=== PATIENT | male | born 1945 | race Caucasian/White ===

== ENCOUNTER 2018-12-09 13:28 | Emergency (ER) | payer OTHER, BC ==
[~2018-12-09] VITALS: Ht 177.8 cm; Wt 83.9 kg
[~2018-12-09 13:28] MED LIST: ARICEPT10 M1 PO; ASPIRIN325 PO; BENICAR HCT 401 EAC1 PO; BENICAR20 MG PO; HYDROCODON-ACE1 EAC7 PO; LIPITOR10 MG PO; LIPITOR20 MG PO; NAMENDA 10 MG T10 MG PO; PROVENTIL HFA6.7 G1 INH
[2018-12-09] MEDS ORDERED: FLONASE 0.05%50 MCG NASAL ×2 (14:39→14:47)
[2018-12-09 16:01] VITALS: BP 123/76
== END 2018-12-09 13:35 | disposition home or self-care (01) ==
LOC: ER 13:28
DX: J30.9 Allergic rhinitis, unspecified (principal); H69.82 Other specified disorders of Eustachian tube, left ear; I10 Essential (primary) hypertension; G47.30 Sleep apnea, unspecified; F03.90 Unspecified dementia, unspecified severity, without behavioral disturbance, psychotic disturbance, mood disturbance, and anxiety; E78.00 Pure hypercholesterolemia, unspecified; Z85.46 Personal history of malignant neoplasm of prostate; Z87.891 Personal history of nicotine dependence

== ENCOUNTER → 2019-12-11 | Outpatient (CLI) | payer OTHER, BC ==
[~2019-12-11] MED LIST changes: +FLONASE 0.05%50 MCG NASAL
== END ==
LOC: SJCVC 10:22 → SJCVCIMAG 10:22
DX: I08.2 Rheumatic disorders of both aortic and tricuspid valves (principal); I11.9 Hypertensive heart disease without heart failure; E78.00 Pure hypercholesterolemia, unspecified; I51.9 Heart disease, unspecified; R73.03 Prediabetes; I65.23 Occlusion and stenosis of bilateral carotid arteries; F03.90 Unspecified dementia, unspecified severity, without behavioral disturbance, psychotic disturbance, mood disturbance, and anxiety

== ENCOUNTER → 2020-06-23 | Outpatient (CLI) | payer OTHER, BC | LOC: SJCVC 13:30 | PROVIDERS: ATTEND Internal Medicine Cardiovascular Disease | DX: I65.23 Occlusion and stenosis of bilateral carotid arteries (principal); I35.0 Nonrheumatic aortic (valve) stenosis; I73.9 Peripheral vascular disease, unspecified; E78.00 Pure hypercholesterolemia, unspecified; I10 Essential (primary) hypertension; J44.9 Chronic obstructive pulmonary disease, unspecified; E78.5 Hyperlipidemia, unspecified; Z82.49 Family history of ischemic heart disease and other diseases of the circulatory system; Z87.891 Personal history of nicotine dependence; Z79.899 Other long term (current) drug therapy ==

== ENCOUNTER 2020-07-24 11:28 | Emergency (ER) | payer OTHER, BC ==
[~2020-07-24] VITALS: Ht 177.8 cm; Wt 54.4 kg
[2020-07-24] MEDS ORDERED: BACTRIM DS TAB1 EACH PO (12:07)
[2020-07-24 12:12] VITALS: BP 149/70
== END 2020-07-24 12:22 | disposition home or self-care (01) ==
LOC: ER 11:28
DX: L02.212 Cutaneous abscess of back [any part, except buttock and flank] (principal); I10 Essential (primary) hypertension; E78.5 Hyperlipidemia, unspecified; Z79.899 Other long term (current) drug therapy; Z87.891 Personal history of nicotine dependence

== ENCOUNTER → 2020-08-19 | Outpatient (CLI) | payer OTHER, BC ==
[~2020-08-19] MED LIST changes: +BACTRIM DS TAB1 EACH PO
== END ==
LOC: SJCVC 12:43
PROVIDERS: ATTEND Internal Medicine Cardiovascular Disease
DX: R94.31 Abnormal electrocardiogram [ECG] [EKG] (principal); I35.0 Nonrheumatic aortic (valve) stenosis; I10 Essential (primary) hypertension; I49.3 Ventricular premature depolarization; R55 Syncope and collapse; I65.23 Occlusion and stenosis of bilateral carotid arteries; E78.00 Pure hypercholesterolemia, unspecified; I82.402 Acute embolism and thrombosis of unspecified deep veins of left lower extremity; I26.99 Other pulmonary embolism without acute cor pulmonale; J44.9 Chronic obstructive pulmonary disease, unspecified; E78.5 Hyperlipidemia, unspecified; G47.33 Obstructive sleep apnea (adult) (pediatric); F03.90 Unspecified dementia, unspecified severity, without behavioral disturbance, psychotic disturbance, mood disturbance, and anxiety; Z87.891 Personal history of nicotine dependence; Z79.899 Other long term (current) drug therapy; Z88.8 Allergy status to other drugs, medicaments and biological substances

== ENCOUNTER → 2020-08-30 | Outpatient (CLI) | payer OTHER, BC | LOC: HYPER 08-25 16:15 | PROVIDERS: ATTEND Emergency Medicine | DX: L98.492 Non-pressure chronic ulcer of skin of other sites with fat layer exposed (principal); L03.312 Cellulitis of back [any part except buttock and flank]; L02.415 Cutaneous abscess of right lower limb; I11.0 Hypertensive heart disease with heart failure; I50.9 Heart failure, unspecified; I73.9 Peripheral vascular disease, unspecified; E78.00 Pure hypercholesterolemia, unspecified; G30.9 Alzheimer's disease, unspecified; J44.9 Chronic obstructive pulmonary disease, unspecified; F02.80 Dementia in other diseases classified elsewhere, unspecified severity, without behavioral disturbance, psychotic disturbance, mood disturbance, and anxiety; F32.9 Major depressive disorder, single episode, unspecified; Z86.718 Personal history of other venous thrombosis and embolism; Z86.711 Personal history of pulmonary embolism; Z85.51 Personal history of malignant neoplasm of bladder; Z87.891 Personal history of nicotine dependence; Z85.46 Personal history of malignant neoplasm of prostate ==

== ENCOUNTER → 2020-09-07 | Outpatient (CLI) | payer OTHER, BC | LOC: HYPER 10:02 | PROVIDERS: ATTEND Emergency Medicine | DX: L98.492 Non-pressure chronic ulcer of skin of other sites with fat layer exposed (principal); L03.312 Cellulitis of back [any part except buttock and flank]; L02.212 Cutaneous abscess of back [any part, except buttock and flank]; I11.0 Hypertensive heart disease with heart failure; I50.9 Heart failure, unspecified; I73.9 Peripheral vascular disease, unspecified; E78.00 Pure hypercholesterolemia, unspecified; G30.9 Alzheimer's disease, unspecified; J44.9 Chronic obstructive pulmonary disease, unspecified; F02.80 Dementia in other diseases classified elsewhere, unspecified severity, without behavioral disturbance, psychotic disturbance, mood disturbance, and anxiety; F32.9 Major depressive disorder, single episode, unspecified; Z86.718 Personal history of other venous thrombosis and embolism; Z85.51 Personal history of malignant neoplasm of bladder; Z86.711 Personal history of pulmonary embolism; Z87.891 Personal history of nicotine dependence; Z85.46 Personal history of malignant neoplasm of prostate ==

== ENCOUNTER → 2020-09-23 | Outpatient (CLI) | payer OTHER, BC | LOC: HYPER 09:03 | PROVIDERS: ATTEND Emergency Medicine | DX: L98.492 Non-pressure chronic ulcer of skin of other sites with fat layer exposed (principal); L03.312 Cellulitis of back [any part except buttock and flank]; L02.212 Cutaneous abscess of back [any part, except buttock and flank]; I11.0 Hypertensive heart disease with heart failure; I50.9 Heart failure, unspecified; I73.9 Peripheral vascular disease, unspecified; E78.00 Pure hypercholesterolemia, unspecified; G30.9 Alzheimer's disease, unspecified; J44.9 Chronic obstructive pulmonary disease, unspecified; F02.80 Dementia in other diseases classified elsewhere, unspecified severity, without behavioral disturbance, psychotic disturbance, mood disturbance, and anxiety; F32.9 Major depressive disorder, single episode, unspecified; Z85.51 Personal history of malignant neoplasm of bladder; Z87.891 Personal history of nicotine dependence; Z86.711 Personal history of pulmonary embolism; Z86.718 Personal history of other venous thrombosis and embolism; Z85.46 Personal history of malignant neoplasm of prostate ==

== ENCOUNTER → 2020-11-25 | Outpatient (CLI) | payer OTHER, BC | LOC: SJCVCIMAG 11-18 09:13 | PROVIDERS: ATTEND Internal Medicine Cardiovascular Disease | DX: I82.432 Acute embolism and thrombosis of left popliteal vein (principal); I82.442 Acute embolism and thrombosis of left tibial vein; I49.3 Ventricular premature depolarization; M79.89 Other specified soft tissue disorders; I10 Essential (primary) hypertension; E78.00 Pure hypercholesterolemia, unspecified; I65.23 Occlusion and stenosis of bilateral carotid arteries; F03.90 Unspecified dementia, unspecified severity, without behavioral disturbance, psychotic disturbance, mood disturbance, and anxiety; I35.0 Nonrheumatic aortic (valve) stenosis; J44.9 Chronic obstructive pulmonary disease, unspecified; G47.33 Obstructive sleep apnea (adult) (pediatric); I73.9 Peripheral vascular disease, unspecified; Z98.890 Other specified postprocedural states; Z79.899 Other long term (current) drug therapy; Z87.891 Personal history of nicotine dependence; Z82.49 Family history of ischemic heart disease and other diseases of the circulatory system ==

== ENCOUNTER 2021-02-07 15:45 | Emergency (ER) | payer OTHER, BC ==
[~2021-02-07] VITALS: Ht 175.3 cm; Wt 98.0 kg
--- NOTE | ~2021-02-07 | EMS ---
[address] [address] EMS Patient Care Report Name: VANNESSA EDWARDS Room #: [facility].[place]#: [id number] Admission: Attend Phys: Discharge: Date of : 43 Report #: [id number] THIS REPORT FOR: //name// Report Transmitted: 02/07/2021 15:25 EMS Care Summary [facility] MED-ACT Incident [id number] @ 02/07/2021 15:12 Incident Location [address] [place] [address] Patient VANNESSA EDWARDS Female, 75 Years 1945 Patient Address [address] [place] [address] Patient History Congestive Heart Failure (CHF),Hyperlipidemia,Prostate Cancer, Patient Allergies No known allergies, Patient Medications Eliquis, Atorvastatin, Torsemide, Doxycycline, Chief Complaint Passed out Disposition Transported No Lights/[place] Dispatch Reason Unconscious/Fainting Transported To [facility] Narrative Arrived to scene to find male patient sitting on a commode in a living room. The patient was A&Ox4 and reported he passed out and he doesn't remember much of it. He stated he has no pain but he just feels weird. [facility] [address] [place] [address] EMS Patient Care Report Name: VANNESSA EDWARDS Room #: [facility] [place].#: [id number] Admission: Attend Phys: Discharge: Date of : 43 Report #: [id number] The patient had home health present at the home and she reported he was sitting on the commode when he passed out and was out for about 2-3 minutes. She stated he woke back up and proceeded to have a bowel movement. The patient is reported to have dementia but he was alert and oriented during transport. Vital signs; ECG; 12-lead; transport. The patient's condition was unchanged. The patient was transported to [facility] ER and delivered to [facility]. The patient signed the report. He was left in care of staff. Initial Vitals @15:35P: 82,SpO2: 92, @15:22P: 90,SpO2: 93,CA Suspected: false @15:34P: 74,R: 20,BP: 145/86,Pain: 0/10,GCS: 15,SpO2: 93,Revised Trauma: 12,CA Suspected: false @15:19P: 98,R: 20,BP: 133/86,Pain: 0/10,GCS: 15,Temp: 98.1F,Glucose: 154,SpO2: 96,Revised Trauma: 12, Assessments @15:22MENTAL:Person Oriented,Time Oriented,Place Oriented,Event Oriented,SKIN:Pale,HEENT:Head/Face: No Abnormalities,Neck/Airway: No Abnormalities,LUNG SOUNDS:General: No Abnormalities,ABDOMEN:General: No Abnormalities,PELVIS//GI:No Abnormalities,EXTREMITIES:Capillary Refill: Right Upper: < 2 Sec,Left Arm: No Abnormalities,Right Arm: No Abnormalities,Left Leg: No Abnormalities,Right Leg: No Abnormalities,PULSE:Radial: 2+ Normal,NEURO:No Abnormalities, Impression Syncope / Fainting Procedures @15:2212-Lead ECGResponse: UnchangedSucceeded@15:28Surgical Mask on PatientResponse: Unchanged Timeline 15:10,Call Received 15:10,Psap Call 15:12,Dispatched 15:13,En Route 15:15,On Scene 15:17,At Patient 15:19,BP: 133/86 M,PULSE: 98,RR: 20 R,SPO2: 96 Ox,ETCO2: ,B,PAIN: 0,GCS: [facility] [address] [place] [address] EMS Patient Care Report Name: VANNESSA EDWARDS Room #: [facility].R.#: [id number] Admission: Attend Phys: Discharge: Date of : 43 Report #: [id number] 15, 15:22,12-Lead ECG,Response: UnchangedSucceeded, 15:22,BP: / M,PULSE: 90,RR: R,SPO2: 93 Ox,ETCO2: ,BG: ,PAIN: ,GCS: , 15:28,Surgical Mask on Patient,Response: Unchanged 15:32,Depart Scene 15:34,BP: 145/86 M,PULSE: 74,RR: 20 R,SPO2: 93 Ox,ETCO2: ,BG: ,PAIN: 0,GCS: 15, 15:35,BP: / M,PULSE: 82,RR: R,SPO2: 92 Ox,ETCO2: ,BG: ,PAIN: ,GCS: , 15:43,At Destination 16:01,Call Closed Disclaimer v1.1 Copyright 2020 [employer] This EMS Care Summary contains data elements from the applicable legal record (which may be displayed differently). It is designed to provide pertinent information for the following purposes: continuity of care, clinical quality, and state data reporting. The complete legal record is available to ED staff and administrators of the receiving hospital in [employer]'s Patient Tracker. All data is provided "as is."
[2021-02-07 16:16] LABS: ABSOLUTE NEUTROPHILS 7.3 thou/uL (1.4-8.2); BASOPHILS 0.6 % (0.0-2.0); EOSINOPHILS 4.3 % (0.0-3.0); HEMOGLOBIN 14.4 gm/dL (14.0-18.0); LYMPHOCYTES 15.2 % (24.0-44.0); MCH 30.8 pg (26.0-34.0); MCHC 34.2 g/dL (28.0-37.0); MCV 90.1 fL (80.0-100.0); MONOCYTES 10.3 % (1.0-8.0); PLATELET COUNT 309 thou/uL (150-400); POLYS 69.6 % (36.0-66.0); RBC 4.66 mil/uL (4.50-6.00); RDW 12.7 % (10.5-14.5); WBC 10.5 thou/uL (4.0-11.0)
[2021-02-07 16:30] LABS: CALCIUM 8.9 mg/dL (8.5-10.1); CREATININE 1.5 mg/dL (0.7-1.3); POTASSIUM 3.6 mmol/L (3.5-5.1)
[2021-02-07 16:37] LABS: ALBUMIN 3.3 g/dL (3.4-5.0); TOTAL BILIRUBIN 0.3 mg/dL (0.2-1.0); TOTAL PROTEIN 7.4 g/dL (6.4-8.2)
--- NOTE | 2021-02-07 17:06 | EKG ---
[place] [address] [facility] [employer] [place] [address] ELECTROCARDIOGRAM REPORT Name: VANNESSA EDWARDS Room #: [facility]..#: [id number] Admission: Attend Phys: Discharge: Date of : 43 Report #: [id number] [facility] ED Test Date: 2021-02-07 Test Time: 15:58:45 Pat Name: VANNESSA EDWARDS Department: Room: Gender: Tanbark Peeler: [place] : 1945 Requested By: Shantel Velásquez Order Number: [id number] MD: Duane Foley Measurements Intervals [place] Rate: 77 P: 43 LA: 156 QRS: -48 QRSD: 116 T: 27 QT: 473 QTc: 536 Interpretive Statements Sinus rhythm LAD, consider left anterior fascicular block Early R wave progression Nonspecific ST and T wave abnormality Baseline wander in lead(s) V1,V2,V3,V6 Compared to ECG 08/14/2012 00:29:27 [place] has shifted leftward Nonspecific ST and T wave abnormality is now present Electronically Signed On 02-07-2021 17:05:53 CDT by Duane Foley [email or web address] <ELECTRONICALLY SIGNED> By: Duane Foley MD, [facility] 02/07/21 1705 1558 1558 Duane Foley MD, [facility] /EPI
[2021-02-07 17:40] LABS: APTT 25.6 Seconds (24.5-32.8); INR 0.98; PROTIME 10.7 Seconds (10.5-12.1)
[2021-02-07 17:57] LABS: URINE BILIRUBIN NEGATIVE (Negative); URINE BLOOD 2+ (Negative); URINE CLARITY CLEAR; URINE COLOR YELLOW; URINE GLUCOSE-RANDOM* NEGATIVE (Negative); URINE KETONES NEGATIVE (Negative); URINE LEUKOCYTES-REFLEX 1+ (Negative); URINE NITRITE-REFLEX NEGATIVE (Negative); URINE PROTEIN (DIPSTICK) NEGATIVE (Negative); URINE UROBILINOGEN 0.2 E.U./dl (0.2-1.0)
[2021-02-07 18:01] LABS: SQUAMOUS 4-10 Moderate /LPF (0-3)
[2021-02-07 18:02] LABS: BACTERIA-REFLEX 1-9 Few /HPF (None Seen); CRYSTALS None Seen /LPF (None Seen); URINE RBC 1-2 Rare /HPF (NONE SEEN); URINE WBC-REFLEX 6-15 Few /HPF (0-5)
[2021-02-07 19:28] VITALS: BP 151/70
--- NOTE | 2021-02-08 07:21 | EKG ---
[place] [address] [facility] [employer] [address] ELECTROCARDIOGRAM REPORT Name: VANNESSA EDWARDS Room #: [facility]#: [id number] Admission: 02/07/21 Attend Phys: Discharge: 02/07/21 Date of : 43 Report #: [id number] [facility] ED Test Date: 2021-02-07 Test Time: 16:10:42 Pat Name: VANNESSA EDWARDS Department: Room: Gender: M Clearance Coordinator: unknown : 1945 Requested By: Shantel Velásquez Order Number: [id number] MD: Oz Jang Measurements Intervals [place] Rate: 122 P: 28 [place]: 126 QRS: 15 QRSD: 86 T: 33 QT: 314 QTc: 448 Interpretive Statements Sinus tachycardia Probable left atrial enlargement Borderline low voltage, extremity leads Baseline wander in lead(s) V5 Compared to ECG 02/07/2021 15:58:45 Sinus rhythm no longer present Poor R-wave progression no longer present ST (T wave) deviation no longer present Electronically Signed On 02-08-2021 7:21:18 CDT by Oz Jang [email or web address] <ELECTRONICALLY SIGNED> By: Oz Jang MD, FAC 02/08/21 0721 1610 1610 Oz Jang MD, [facility] /EPI
== END 2021-02-07 19:29 | disposition home or self-care (01) ==
LOC: ER 15:45
PROVIDERS: Emergency Medicine
DX: R55 Syncope and collapse (principal); F03.90 Unspecified dementia, unspecified severity, without behavioral disturbance, psychotic disturbance, mood disturbance, and anxiety; I10 Essential (primary) hypertension; Z87.891 Personal history of nicotine dependence; Z79.899 Other long term (current) drug therapy; E78.00 Pure hypercholesterolemia, unspecified; Z85.46 Personal history of malignant neoplasm of prostate

== ENCOUNTER → 2021-07-01 | Outpatient (CLI) | payer OTHER, BC | LOC: SJCVCIMAG 11:45 | PROVIDERS: ATTEND Internal Medicine Cardiovascular Disease | DX: R94.31 Abnormal electrocardiogram [ECG] [EKG] (principal); I08.8 Other rheumatic multiple valve diseases; I82.432 Acute embolism and thrombosis of left popliteal vein; I82.442 Acute embolism and thrombosis of left tibial vein; I11.9 Hypertensive heart disease without heart failure; R55 Syncope and collapse; E78.00 Pure hypercholesterolemia, unspecified; I65.23 Occlusion and stenosis of bilateral carotid arteries; E78.5 Hyperlipidemia, unspecified; J44.9 Chronic obstructive pulmonary disease, unspecified; G47.33 Obstructive sleep apnea (adult) (pediatric); I73.9 Peripheral vascular disease, unspecified; F03.90 Unspecified dementia, unspecified severity, without behavioral disturbance, psychotic disturbance, mood disturbance, and anxiety; Z86.718 Personal history of other venous thrombosis and embolism; Z79.899 Other long term (current) drug therapy; Z87.891 Personal history of nicotine dependence ==

== ENCOUNTER 2021-08-08 10:59 | Inpatient (IN) | payer OTHER, BC ==
[~2021-08-08] VITALS: Ht 177.8 cm; Wt 92.7 kg
[2021-08-08 11:01] VITALS: BP 130/82
[2021-08-08 11:47] LABS: ABSOLUTE NEUTROPHILS 12.9 thou/uL (1.4-8.2); BASOPHILS 0.6 % (0.0-2.0); EOSINOPHILS 0.4 % (0.0-3.0); HEMATOCRIT 41.9 % (42.0-52.0); LYMPHOCYTES 8.9 % (24.0-44.0); MCH 30.5 pg (26.0-34.0); MCHC 33.5 g/dL (28.0-37.0); MONOCYTES 11.2 % (1.0-8.0); PLATELET COUNT 278 thou/uL (150-400); POLYS 78.9 % (36.0-66.0); RBC 4.61 mil/uL (4.50-6.00); RDW 13.3 % (10.5-14.5); WBC 16.4 thou/uL (4.0-11.0)
[2021-08-08 11:51] LABS: CREATININE 1.5 mg/dL (0.7-1.3); POTASSIUM 3.4 mmol/L (3.5-5.1)
[2021-08-08 12:02] LABS: ALBUMIN 3.2 g/dL (3.4-5.0); TOTAL PROTEIN 7.8 g/dL (6.4-8.2)
[2021-08-08 17:23] LABS: FOLIC ACID 7.7 ng/mL (8.6-58.9)
[2021-08-08 19:41] VITALS: BP 108/52
[2021-08-08 20:35] VITALS: BP 117/81
[2021-08-08 21:10] VITALS: BP 128/68
--- NOTE | 2021-08-09 04:21 | NUR ---
ADMITTED THIS PATIENT FROM THE EMERGENCY DEPT. AROUND 2104H.PATEINT IS ON ROOM AIR SATURATING WELL.ORIENTED ONLY TO SELF AND FORGETFUL AND CONFUSED.ADMISSION HISORY AND ASSESSMENT COMPLETED BUT WITH LILITED INFORMATION BECAUSE PATIENT IS CONFUSED AND PROVIDES LIMITED INFORMATION.INFORMED MEDICAL TECHNOLOGIST PRN OF THIS ADMSSION AND ASKED IF THERE ARE OTHER HOME MEDS THAT NEEDS TO BE ORDERED.ASSESSMENT DONE CHARTED.MEDS GIVEN PER NOV.FALL PREVENTION MEASURES MAINTAINED.ALL NEEDS ATTENDED.TO CONTINOUSLY MONITOR.
[2021-08-09 05:24] LABS: HEMATOCRIT 37.8 % (42.0-52.0); HEMOGLOBIN 12.7 gm/dL (14.0-18.0); MCH 30.6 pg (26.0-34.0); MCHC 33.5 g/dL (28.0-37.0); MCV 91.3 fL (80.0-100.0); RBC 4.13 mil/uL (4.50-6.00); RDW 13.3 % (10.5-14.5); WBC 14.3 thou/uL (4.0-11.0)
[2021-08-09 05:26] LABS: CALCIUM 8.6 mg/dL (8.5-10.1); CREATININE 1.3 mg/dL (0.7-1.3); POTASSIUM 3.5 mmol/L (3.5-5.1)
[2021-08-09 06:05] VITALS: BP 142/79
--- NOTE | 2021-08-09 08:06 | EKG ---
[place] [address] [facility] [place] [address] ELECTROCARDIOGRAM REPORT Name: VANNESSA EDWARDS Room #: 217-P ADM IN M.R.#: [id number] Admission: 08/08/21 Attend Phys: Vibha Ferguson Discharge: Date of : 43 Report #: [id number] [facility] ED Test Date: 2021-08-08 Test Time: 11:18:49 Pat Name: VANNESSA EDWARDS Department: Room: 217 Gender: M Temp Recruiter: DENIS : 1945 Requested By: Jayla Browning Order Number: [id number] MD: Duane Foley Measurements Intervals [place] Rate: 91 P: NE: QRS: -58 QRSD: 100 T: 118 QT: 396 QTc: 488 Interpretive Statements Sinus rhythm Left anterior fascicular block Abnormal R-wave progression, early transition Nonspecific T wave abnormality Borderline prolonged QT interval Compared to ECG 02/07/2021 16:10:42 Left anterior fascicular block now present Nonspecific change in the ST and T wave segments Sinus tachycardia no longer present Electronically Signed On 08-09-2021 8:06:33 MDS COORDINATOR by Duane Foley [email or web address] <ELECTRONICALLY SIGNED> By: Duane Foley MD, [facility] 08/09/21 0806 1118 1118 Duane Foley MD, [facility] /EPI
[2021-08-09 08:20] VITALS: BP 121/66
--- NOTE | 2021-08-09 12:32 | NUR ---
CARE ASSUMED THIS AM, PT ALERT AND ORIENTED X2. HX OF DEMENTIA AND CONFUSION. ENIES ANY PAIN. ON ROOM AIR, NO SIGNS OF DISTRESS. PT BASELINE WITH ACTIVITY AT HOME IS UP AD LADARIUS. WORKED WITH PT AND NEEDS TO BE UP WITH MOD ASSIST. UP IN THE CHAIR LANDY, CHAIR ALARM ON. FALL PRECAUTIONS IN PLACE. WILL CONTINUE TO MONITOR.
[2021-08-09 13:50] LABS: URINE BILIRUBIN NEGATIVE (Negative); URINE BLOOD NEGATIVE (Negative); URINE CLARITY CLEAR; URINE COLOR YELLOW; URINE GLUCOSE-RANDOM* NEGATIVE (Negative); URINE KETONES NEGATIVE (Negative); URINE LEUKOCYTES-REFLEX TRACE (Negative); URINE NITRITE-REFLEX NEGATIVE (Negative); URINE PROTEIN (DIPSTICK) TRACE (Negative); URINE SPECIFIC GRAVITY 1.025 (1.005-1.035); URINE UROBILINOGEN 0.2 E.U./dl (0.2-1.0)
[2021-08-09 16:38] VITALS: BP 117/76
--- NOTE | 2021-08-09 17:29 | NUR ---
Met with patient, son at bedside. Patient resides at home with and caregivers. Son reports to call his sister Kayce who has details of dc planning. called and sp with Kayce [phone]. She reports she lives out of town but coming in town on Sunday. Has been in works to place patient at [facility]. Kayce reports her mother is to be placed in assisted living. They are in process of reviewing and making visits. Left resources in room to assist. Plan dc to [facility] once medically ready. Faxed clinical information. Kayce concerned patient has UTI frequently and has been with sepsis severly. She wants to be assured patient changed and cleaned frequently. casemgt following
[2021-08-09 19:09] VITALS: BP 139/73
[2021-08-10 04:15] VITALS: BP 135/67
[2021-08-10 08:00] VITALS: BP 110/57
[2021-08-10] MEDS ORDERED: FLOMAX0.4 MG PO (10:56)
[2021-08-10] MEDS ORDERED: FOLIC ACID1 MG PO (10:57)
[2021-08-10] MEDS ORDERED: CEFUROXIME500 MG PO (11:05)
[2021-08-10 11:40] VITALS: BP 106/64
--- NOTE | 2021-08-10 15:11 | NUR ---
NO FALLS OR INJURIES THIS SHIFT. ALL SAFETY MEASURES IN PLACE. VSS. PATIENT REMAINS CONFUSED BUT HAS DEMENTIA PER FAMILY MEMBER DURING DISCHARGE. REMAINED ON RA. PATIENT REMAINED IN NSR. TOLERATED DIET, POOR APPETITE. TOOK MEDS WITH APPLESAUCE. DIFFICULT TO GET PATIENT UP AND DRESSED AT DISCHARGE. SON HELPED TO GET HIM TO STAND UP AND TRANSFER TO WHEELCHAIR. DISCHARGE ORDERED TO RETURN PATIENT BACK TO [facility].
--- NOTE | 2021-08-10 15:46 | NUR ---
REPORT CALLED TO [facility]. SPOKE WITH BRINA ARREDONDO.
--- NOTE | 2021-08-11 09:06 | NUR ---
patient dc to [facility] yesterday. Chart copied, rn called report, orders faxed, wc van arranged, family aware of transport.
[2021-08-11 21:06] LABS: SYPHILIS AB Non Reactive (Non Reactive)
== END 2021-08-10 15:29 | DRG 682 ==
LOC: ER 10:59 → EROBS 17:14 → 2N 17:14
PROVIDERS: Nurse Practitioner Family; ADMIT Hospitalist; ATTEND Hospitalist
DX: N17.9 Acute kidney failure, unspecified (principal); R65.11 Systemic inflammatory response syndrome (SIRS) of non-infectious origin with acute organ dysfunction; L03.116 Cellulitis of left lower limb; N39.0 Urinary tract infection, site not specified; R55 Syncope and collapse; N40.0 Benign prostatic hyperplasia without lower urinary tract symptoms; F03.90 Unspecified dementia, unspecified severity, without behavioral disturbance, psychotic disturbance, mood disturbance, and anxiety; I35.0 Nonrheumatic aortic (valve) stenosis; E78.00 Pure hypercholesterolemia, unspecified; E53.8 Deficiency of other specified B group vitamins; Z88.8 Allergy status to other drugs, medicaments and biological substances; Z86.718 Personal history of other venous thrombosis and embolism; Z79.01 Long term (current) use of anticoagulants; F17.210 Nicotine dependence, cigarettes, uncomplicated; Z20.822 Contact with and (suspected) exposure to COVID-19; E86.0 Dehydration
CPT/HCPCS: 10081

== ENCOUNTER 2021-08-17 03:08 | Inpatient (IN) | payer OTHER, BC ==
[~2021-08-17] VITALS: Ht 177.8 cm; Wt 99.7 kg
[~2021-08-17 03:08] MED LIST changes: +CEFUROXIME500 MG PO; +FLOMAX0.4 MG PO; +FOLIC ACID1 MG PO
[2021-08-17 03:10] VITALS: BP 142/74
[2021-08-17] MEDS ORDERED: FUROSEMIDE 40 M40 MG PO (03:15)
[2021-08-17] MEDS ORDERED: K-TAB ER8 MEQ PO (03:16)
[2021-08-17 04:34] LABS: HEMATOCRIT 32.1 % (42.0-52.0); MCH 31.2 pg (26.0-34.0); MCHC 34.4 g/dL (28.0-37.0); MCV 90.5 fL (80.0-100.0); PLATELET COUNT 401 thou/uL (150-400); RBC 3.55 mil/uL (4.50-6.00); RDW 13.4 % (10.5-14.5); WBC 17.6 thou/uL (4.0-11.0)
[2021-08-17 04:42] LABS: CALCIUM 8.3 mg/dL (8.5-10.1); POTASSIUM 3.9 mmol/L (3.5-5.1)
[2021-08-17 04:51] LABS: ALBUMIN 2.1 g/dL (3.4-5.0); TOTAL BILIRUBIN 0.3 mg/dL (0.2-1.0); TOTAL PROTEIN 6.2 g/dL (6.4-8.2)
[2021-08-17 05:07] LABS: INR 0.97; PROTIME 10.6 Seconds (10.5-12.1)
[2021-08-17 06:29] LABS: ABSOLUTE NEUTROPHILS 11.3 thou/uL (1.4-8.2)
[2021-08-17 06:30] LABS: ANISOCYTOSIS 1+; PLATELET ESTIMATE INCREASED; POIKILOCYTOSIS 1+
--- NOTE | 2021-08-17 07:54 | EKG ---
[place] [address] [facility] [place] [address] ELECTROCARDIOGRAM REPORT Name: VANNESSA EDWARDS Room #: 170-8 ADM IN M.R.#: [id number] Admission: 08/17/21 Attend Phys: Jenna Anderson MD Discharge: Date of : 43 Report #: [id number] [facility] ED Test Date: 2021-08-17 Test Time: 04:29:07 Pat Name: VANNESSA EDWARDS Department: Room: 170 Gender: M Oven Operator: [id number] : 1945 Requested By: Mauri Grant Order Number: [id number] MD: Duane Foley Measurements Intervals [place] Rate: 91 P: [place]: QRS: -46 QRSD: 104 T: 19 QT: 395 QTc: 487 Interpretive Statements Sinus rhythm Left anterior fascicular block Abnormal R-wave progression, early transition Borderline prolonged QT interval Compared to ECG 08/08/2021 11:18:49 T-wave abnormality no longer present Electronically Signed On 08-17-2021 7:54:18 EDUCATION PROFESSOR by Duane Foley [email or web address] <ELECTRONICALLY SIGNED> By: Duane Foley MD, [facility] 08/17/21 0754 0429 0429 Duane Foley MD, [facility] /EPI
--- NOTE | 2021-08-17 09:04 | NUR ---
PT'S HEPARIN GTT NOT STARTED AT THIS TIME
[2021-08-17 10:33] LABS: URINE BILIRUBIN NEGATIVE (Negative); URINE BLOOD NEGATIVE (Negative); URINE CLARITY CLEAR; URINE COLOR YELLOW; URINE GLUCOSE-RANDOM* NEGATIVE (Negative); URINE KETONES NEGATIVE (Negative); URINE LEUKOCYTES-REFLEX NEGATIVE (Negative); URINE NITRITE-REFLEX NEGATIVE (Negative); URINE PROTEIN (DIPSTICK) NEGATIVE (Negative); URINE SPECIFIC GRAVITY >= 1.030 (1.005-1.035); URINE UROBILINOGEN 0.2 E.U./dl (0.2-1.0)
[2021-08-17 10:39] LABS: FOLIC ACID 11.6 ng/mL (8.6-58.9)
--- NOTE | 2021-08-17 12:09 | NUR ---
Case opened to follow for dc planning. Pt was recently dc'd to SNF at [facility] on 08/11/21 for rehab and transition [facility]. Dtr/CANDELARIO Devries is at bedside today and is the primary contact for dc planning. Pt readmitted with extensive DVT. IVC filter being placed today. Kayce indicates they anticipate pt to return to SNF at [facility] when medically ready. They are working on getting pt's spouse (her mom) into their fpc. Message left for admissions at [facility] to confirm they can readmit at dc. They did call earlier to request an update. Clinical updated faxed to Alice in admissions. Dc plan is to return to snf at [facility] when stable.
--- NOTE | 2021-08-17 19:17 | NUR ---
SPOKE TO CANDELARIO RAMACHANDRAN REGARDING CONVERSATION WITH CARDIOLOGY REGARDING HEPARIN VS. LOVENOX AND ANTICOAGS REGARING PATIENTS CASE. DUARTE STATES HER INTERPRETATION OF THE PLAN WAS TO AVOID ANTICOAGS D/T PATIENT HIGH FALL RISK AND HX OF SYNCOPAL EPISODE
[2021-08-18] VITALS (7 sets, daily range): BP systolic 110–146; BP diastolic 56–73
[2021-08-18 05:43] LABS: BASOPHILS 0.8 % (0.0-2.0); EOSINOPHILS 3.8 % (0.0-3.0); HEMATOCRIT 30.3 % (42.0-52.0); HEMOGLOBIN 10.1 gm/dL (14.0-18.0); LYMPHOCYTES 10.4 % (24.0-44.0); MCHC 33.4 g/dL (28.0-37.0); MONOCYTES 9.1 % (1.0-8.0); PLATELET COUNT 441 thou/uL (150-400); POLYS 75.9 % (36.0-66.0); RBC 3.37 mil/uL (4.50-6.00); RDW 13.3 % (10.5-14.5); WBC 11.9 thou/uL (4.0-11.0)
[2021-08-18 06:08] LABS: CALCIUM 8.2 mg/dL (8.5-10.1); CREATININE 0.9 mg/dL (0.7-1.3); MAGNESIUM 1.8 mg/dL (1.8-2.4); POTASSIUM 3.8 mmol/L (3.5-5.1)
--- NOTE | 2021-08-18 06:41 | NUR ---
ADMITTED THIS PATIENT FROM THE ED AT 0544H.ASSESSMENT DONE CHARTED.MEDS GIVEN PER NOV.ADMISSION HISTORY AND ASSESSMENT DONE WITH LIMITED INFORMATION PATIENT IS CONFUSED.ALL NEEDS ATTENDED.TO CONTIONOUSLY MONITOR.
--- NOTE | 2021-08-18 10:09 | NUR ---
PATIENT RESTING IN BED AT THIS TIME. PT SLEEPY THIS MORNING. PHYSICAL THERAPY AND OCCUPATIONAL THERAPY VISITED PATIENT THIS MORNING. PATIENT AXOX1 DOES NOT RESPOND APPROPRIATLEY TO QUESTIONS. PT DOES NOT APPEAR IN ANY DISTRESS OR PAIN. WILL CONTINUE TO MONITOR. ASSESSMENTS CHARTED. FALL PRECAUTIONS IN PLACE AND BED ALARM ACTIVE.
--- NOTE | 2021-08-18 15:42 | NUR ---
SPOKE TO GORDON ADAMES WHO REPORTED THEY WILL ACCEPT PT BACK ONCE MEDICALLY STABLE. CM FAXED THERPAY ORDERS THIS DAY. CM WILL CONTINUE TO FOLLOW.
[2021-08-19 05:01] VITALS: BP 137/67
--- NOTE | 2021-08-19 05:16 | NUR ---
ASSUMED PT CARE AT 1900, ALERT TO SELF, PLEASANTLY CONFUSED, SR ON TELE, DOESNT APPEAR TO BE IN ANY DISTRESS, ASSESSMENTS CHARTED, STILL SIGNIFICANT EDEMA TO THE RLE, REMAINS INCONTINENT OF B&B, ADEQUATE U/O, BM THIS SHIFT, R.NECK DRESSING INTACT, NO DRAINAGE, WILL CONTINUE TO MONITOR
[2021-08-19 07:25] VITALS: BP 109/47
[2021-08-19] MEDS ORDERED: XARELTO15 MG PO (09:06)
--- NOTE | 2021-08-19 12:44 | NUR ---
THIS CM SPOKE TO PTS CANDELARIO RAMACHANDRAN AT [phone]. INFORMED DUARTE PT TRANSFERRING TO [facility] TODAY BETWEEN [phone]. SHE IS AGREEABLE. RN AWARE WELL.
--- NOTE | 2021-08-19 13:50 | NUR ---
TOOK OVER PATIENT CARE AT 0700. PT RESTING COMFORTABLY IN BED. DENIES ANY NEEDS AT THIS TIME. PT AXOX1; DOES NOT RESPOND APPROPRIATLEY TO QUESTIONS BUT IS EASILY DIRECTED. DENIES SOA, CHEST PAIN, DIZZINESS, OR HEADACHE. FALL PRECAUTIONS IN PLACE. PT RESTING IN RECLINER. PLAN TO DISCHARGE THIS AFTERNOON.
--- NOTE | 2021-08-19 15:20 | NUR ---
PT DISCHARGED BACK TO NURSING FACILITY. TRANSPORTATION VIA WHEELCHAIR. PT LEFT WITH ALL BELONGS.
== END 2021-08-19 16:13 | DRG 299 ==
LOC: ER 03:08 → 2N 05:35 → EROBS 05:35 → 2N 08-18 05:31
PROVIDERS: Emergency Medicine; Nurse Practitioner; ADMIT Internal Medicine; ATTEND Internal Medicine
PROC: 06H03DZ Insertion of Intraluminal Device into Inferior Vena Cava, Percutaneous Approach (ICD-10-PCS; principal; 2021-08-17)
DX: I82.4Z1 Acute embolism and thrombosis of unspecified deep veins of right distal lower extremity (principal); R65.11 Systemic inflammatory response syndrome (SIRS) of non-infectious origin with acute organ dysfunction; E43 Unspecified severe protein-calorie malnutrition; Z20.822 Contact with and (suspected) exposure to COVID-19; I10 Essential (primary) hypertension; F03.90 Unspecified dementia, unspecified severity, without behavioral disturbance, psychotic disturbance, mood disturbance, and anxiety; E78.00 Pure hypercholesterolemia, unspecified; D72.829 Elevated white blood cell count, unspecified; I35.0 Nonrheumatic aortic (valve) stenosis; I73.9 Peripheral vascular disease, unspecified; E78.5 Hyperlipidemia, unspecified; Z66 Do not resuscitate; G47.33 Obstructive sleep apnea (adult) (pediatric); I65.21 Occlusion and stenosis of right carotid artery; R26.89 Other abnormalities of gait and mobility; Z68.31 Body mass index [BMI] 31.0-31.9, adult; Z85.51 Personal history of malignant neoplasm of bladder; Z85.46 Personal history of malignant neoplasm of prostate; Z87.891 Personal history of nicotine dependence; Z88.8 Allergy status to other drugs, medicaments and biological substances
CPT/HCPCS: 10081